=== PATIENT | male | born 1955 | race African-American/Black ===

== ENCOUNTER 2022-09-14 05:08 | Inpatient (IN) | payer OTHER ==
[2022-09-14] MEDS ORDERED: Ondansetron PF 4 MG/2 ML Vial ONE (05:26)
[2022-09-14] MEDS ORDERED: Aspirin Chewable 81 MG TAB ONE (06:13)
[2022-09-14 06:29] LABS: PTT 31.3 sec (22.0-33.0); Prothrombin Time 21.1 sec (9.5-12.1)
[2022-09-14 06:32] LABS: ALT (SGPT) 10 U/L (8-55); AST (SGOT) 12 U/L (5-34); Alkaline Phosphatase 61 U/L (40-110); Anion Gap 15 mmol/L (10-20); BUN (Urea Nitrogen) 12 mg/dL (8.4-25.7); Bilirubin, Total 0.5 mg/dL (0.2-1.2); Calc. Creatinine Clearance 0 mL/min (70-130); Calcium 9.4 mg/dL (7.8-10.44); Carbon Dioxide 21 mmol/L (23-31); Chloride 106 mmol/L (98-107); Estimated GFR 96; Globulin 3.7 g/dL (2.4-3.5); Glucose 131 mg/dL (80-115); Potassium 4.6 mmol/L (3.5-5.1); Protein, Total 7.7 g/dL (5.8-8.1); Sodium 137 mmol/L (136-145)
[2022-09-14 06:33] LABS: #Monocytes 0.3 10x3/uL (0.0-1.1); #Neutrophils 5.9 10x3/uL (1.5-8.4); %Basophils 0.3 % (0.0-2.0); %Eosinophils 0.1 % (0.0-6.0); %Monocytes 3.8 % (0.0-10.0); %Neutrophils 81.5 % (40.0-75.0); Hemoglobin 13.4 g/dL (13.5-17.5); Mean Corpuscular Hemoglobin 27.3 pg (27.0-33.0); Mean Corpuscular Volume 85.5 fl (81.2-95.1); Mean Platelet Volume 11.7 fl (7.4-10.4); Platelet Count 236 10x3/uL (150-450); RBC Distribution Width 15.4 % (11.5-14.5); White Blood Cell (WBC) Count 7.3 10x3/uL (3.5-10.5)
[2022-09-14 07:37] LABS: SARS-CoV-2 NAA Rapid Test Not Detected (NotDetected)
[2022-09-14] MEDS ORDERED: Ondansetron PF 4 MG/2 ML Vial IVP PRN (08:04)
[2022-09-14] MEDS ORDERED: Ondansetron ODT 4 MG TAB PO PRN (08:04)
[2022-09-14] MEDS ORDERED: Acetaminophen 325 MG TAB PO PRN (08:04)
[2022-09-14] MEDS ORDERED: Aspirin 81 mg Enteric Coated Tablet PO SCH ×2 (09:00→14:30)
[2022-09-14 10:17] VITALS: BMI 37.0
[2022-09-14 15:22] LABS: Hemoglobin A1c 5.7 % (4.0-6.0)
[2022-09-14] MEDS ORDERED: Dexamethasone 4 mg/ml Vial SLOW IVP SCH (18:45)
[2022-09-14] MEDS ORDERED: diphenhydrAMINE 25 MG in Sodium Chloride 0.9% 50 ML IVPB SCH (19:15)
[2022-09-14] MEDS ORDERED: Metoclopramide HCl 10 MG/2 ML VIAL IVP SCH (19:15)
[2022-09-14] MEDS ORDERED: diphenhydrAMINE 50 MG/ML VIAL IVP SCH (19:30)
[2022-09-14] MEDS ORDERED: Atorvastatin Calcium 40 MG TAB PO SCH (21:00)
[2022-09-14 22:15] VITALS: BP 159/96; TEMP 98.1
[2022-09-15] MEDS ORDERED: Aspirin 300 MG Suppository PR SCH (09:00)
[2022-09-15] MEDS ORDERED: Aspirin 81 mg Enteric Coated Tablet PO SCH (09:00)
== END 2022-09-14 23:52 | disposition short-term general hospital (02) | DRG 65 ==
LOC: CSHERS 05:08 → CSHERHOLD 07:47 → CSHTELE 11:27 → CSHICU 21:34 → CSHIMCU 21:41
PROVIDERS: ADMIT Emergency Medicine; ATTEND Student in an Organized Health Care Education/Training Program
DX: I63.9 Cerebral infarction, unspecified (principal); G81.91 Hemiplegia, unspecified affecting right dominant side; I48.91 Unspecified atrial fibrillation; I10 Essential (primary) hypertension; M19.90 Unspecified osteoarthritis, unspecified site; E66.9 Obesity, unspecified; Z96.641 Presence of right artificial hip joint; Z20.822 Contact with and (suspected) exposure to COVID-19; K74.00 Hepatic fibrosis, unspecified; R29.810 Facial weakness; R13.10 Dysphagia, unspecified; Z98.890 Other specified postprocedural states; Z88.0 Allergy status to penicillin; Z88.8 Allergy status to other drugs, medicaments and biological substances; Z79.01 Long term (current) use of anticoagulants; Z68.37 Body mass index [BMI] 37.0-37.9, adult
CPT/HCPCS: 36415; 36416; 70450; 70551; 71045; 80053; 83036; 84443; 84484; 85025; 85610; 85730; 93005; 93306; 93880; 94760; 96374; J1100; J2405; U0002